=== PATIENT | female | born 1985 | race American Indian/Alaskan Native ===

== ENCOUNTER 2019-04-15 01:30 | Emergency (ER) | payer OTHER ==
[~2019-04-15] VITALS: Ht 157.5 cm; Wt 72.1 kg
[2019-04-15 01:30] VITALS: BP 123/75
--- NOTE | 2019-04-15 01:35 | NUR ---
PT AMBULATED TO BED #12
--- NOTE | 2019-04-15 01:35 | NUR ---
33 Y/O FEMALE BIB PT C/O LEFT HAND PAIN AND NUMBNESS X 1 DAY. PATIENT STATES THAT SHE FEELS NUMBNESS ON HER RIGHT ARM AND SLIGHT PAIN ON THE LEFT, AND THINKS THAT IT IS ATTRIBUTED FROM WORKING OUT YESTERDAY. 5/10 BILATERAL ARM AND BILATERAL KNEE PAIN. DENIES N/V/D. <3 SECONDS; CAPILLARY REFILL ; SKIN WARM TO TOUCH. ERMD MADE AWARE OF STATUS. SIDE RAILSX1. WILL CONTINUE TO MONITOR. ALLERGIES TO PEN[place] NO PREVIOUS MEDICAL HX RX: DENIES
[2019-04-15] MEDS ORDERED: KETOROLAC 60 MG/2 ML VIAL IM ONE (02:10)
[2019-04-15 02:48] VITALS: BP 123/75
--- NOTE | 2019-04-15 02:48 | NUR ---
FAVIOLA OKAY TO DISCHARGE PATIENT. Patient discharged with v/s stable. Written and verbal after care instructions given and explained. Patient alert, oriented and verbalized understanding of instructions. Ambulatory with steady gait. All questions addressed prior to discharge. ID band removed. Patient advised to follow up with PMD. Rx of NAPROSYN given. Patient educated on indication of medication including possible reaction and side effects. Opportunity to ask questions provided and answered. DISCHARGED BY DR. PENNINGTON.
== END 2019-04-15 02:48 | disposition home or self-care (01) ==
LOC: MED 01:30
DX: S63.92XA Sprain of unspecified part of left wrist and hand, initial encounter (principal); S63.91XA Sprain of unspecified part of right wrist and hand, initial encounter; M25.532 Pain in left wrist; Z90.49 Acquired absence of other specified parts of digestive tract; Z88.0 Allergy status to penicillin; X58.XXXA Exposure to other specified factors, initial encounter; Y93.89 Activity, other specified; Y92.89 Other specified places as the place of occurrence of the external cause; Y99.8 Other external cause status
CPT/HCPCS: 96372; 99283; J1885

== ENCOUNTER 2019-09-15 08:37 | Emergency (ER) | payer OTHER ==
[~2019-09-15] VITALS: Ht 157.5 cm; Wt 63.5 kg
[2019-09-15 08:42] VITALS: BP 106/72
[2019-09-15 09:15] VITALS: BP 106/72
== END 2019-09-15 09:15 | disposition home or self-care (01) ==
LOC: MED 08:37
DX: J02.9 Acute pharyngitis, unspecified (principal); Z88.0 Allergy status to penicillin; Z90.49 Acquired absence of other specified parts of digestive tract
CPT/HCPCS: 99283

== ENCOUNTER 2019-09-18 11:55 | Emergency (ER) | payer OTHER, SELFPAY ==
[~2019-09-18] VITALS: Ht 157.5 cm; Wt 63.5 kg
[2019-09-18 12:11] VITALS: BP 119/75
--- NOTE | 2019-09-18 12:21 | NUR ---
C/O SHOULDER PAIN, SORE THROAT X 4 DAYS, HEADACHE X TODAY. MOTHER, BROTHER HAVE COVID +. TEMP 99.4, P 66, R 18, O2 SAT 100%, BP 119/75 AT THIS TIME. MED HX:DENIES
--- NOTE | 2019-09-18 12:30 | NUR ---
COVID SWAB DONE.
[2019-09-18 12:32] VITALS: BP 119/75
== END 2019-09-18 12:32 | disposition home or self-care (01) ==
LOC: MED 11:55 → EEVIPCON 11:55 → MED 12:32
DX: J02.9 Acute pharyngitis, unspecified (principal); Z90.49 Acquired absence of other specified parts of digestive tract; Z88.0 Allergy status to penicillin
CPT/HCPCS: 99283; U0003